=== PATIENT | male | born 1960 | race Caucasian/White ===

== ENCOUNTER 2021-06-24 21:42 | Emergency (ER) | payer OTHER ==
[~2021-06-24] VITALS: Ht 182.9 cm; Wt 95.5 kg
--- NOTE | 2021-06-24 23:00 | PHYS DOC ---
Past Medical History Past Surgical History: No Surgical History General Adult EDM: Chief Complaint: FOOT INJURY PAIN HPI: HPI: Patient is a 60 year old male presents with the chief complaint of left foot pain after an injury at work. Injury to right foot 2000hrs. 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 Patient states he heard some popping. Sudden onset of pain. Pain along metatarsal phalangeal joint of all toes. Toes are all neurovascularly intact no signs or symptoms of compartment syndrome Review of Systems: Review of Systems: Constitutional: Denies fever or chills. [] Eyes: Denies change in visual acuity. [] HENT: Denies nasal congestion or sore throat. [] Respiratory: Denies cough or shortness of breath. [] Cardiovascular: Denies chest pain or edema. [] GI: Denies abdominal pain, nausea, vomiting, bloody stools or diarrhea. [] : Denies dysuria. [] Musculoskeletal: Denies back pain or joint pain. [] Integument: Denies rash. [] Neurologic: Denies headache, focal weakness or sensory changes. [] Endocrine: Denies polyuria or polydipsia. [] Lymphatic: Denies swollen glands. [] Psychiatric: Denies depression or anxiety. [] Heart Score: C/O Chest Pain: N/A Risk Factors: Risk Factors: DM, Current or recent (<one month) smoker, HTN, HLP, family history of CAD, obesity. Risk Scores: Score 0 - 3: 2.5% MACE over next 6 weeks - Discharge Home Score 4 - 6: 20.3% MACE over next 6 weeks - Admit for Clinical Observation Score 7 - 10: 72.7% MACE over next 6 weeks - Early Invasive Strategies Allergies: Allergies: Allergies Coded Allergies Type Severity Reaction Last Updated Verified No Known Drug Allergies 06/24/21 No Physical Exam: PE: Constitutional: Well developed, well nourished, no acute distress, non-toxic appearance. [] HENT: Normocephalic, atraumatic, bilateral external ears normal, oropharynx moist, no oral exudates, nose normal. [] Eyes: PERRLA, EOMI, conjunctiva normal, no discharge. [] Neck: Normal range of motion, no tenderness, supple, no stridor. [] Cardiovascular:Heart rate regular rhythm, no murmur [] Lungs & Thorax: Bilateral breath sounds clear to auscultation [] Abdomen: Bowel sounds normal, soft, no tenderness, no masses, no pulsatile masses. [] Skin: Warm, dry, no erythema, no rash. [] Back: No tenderness, no CVA tenderness. [] Extremities: No tenderness, no cyanosis, no clubbing, ROM intact, no edema. [] Left foot left foot is neurovascularly intact there is some ecchymosis along the medial aspect soft tissue of the great toe there is soft tissue swelling along the distal metatarsals. There is pain to palpation. Patient has pain with range of motion flexion and extension of the toes Neurologic: Alert and oriented X 3, normal motor function, normal sensory function, no focal deficits noted. [] Psychologic: Affect normal, judgement normal, mood normal. [] Current Patient Data: Vital Signs: Vital Signs Date Time Temp Pulse Resp B/P (MAP) Pulse Ox O2 Delivery O2 Flow Rate FiO2 06/24/21 21:58 98.3 63 20 171/101 (124) 97 Room Air 98.3 EKG: EKG: [] Radiology/Procedures: Radiology/Procedures: [] Impression: wet read fracture distal metatarsal 5-4-3-2 IMPRESSION: 1. Acute traumatic fractures of the distal necks of the second through fifth metatarsals. 2. Acute traumatic fracture at the base of the great toe proximal phalanx. Course & Med Decision Making: Course & Med Decision Making Pertinent Labs and Imaging studies reviewed. (See chart for details) [] Treated with naproxen. Prescribed hydrocodone. Referred to Dr. Hebert. Lul patient with Dr. Frazier he request padding and a posterior splint. States his office will call the patient in the a.m. to schedule follow-up. I did provide patient with Dr. Hebert's contact information. Noemí Disclaimer: Noemí Disclaimer: This electronic medical record was generated, in whole or in part, using a voice recognition dictation system. Departure Departure Impression: Primary Impression: Metatarsal fracture Disposition: HOME / SELF CARE / HOMELESS Condition: STABLE Referrals: CLAIRE HEBERT DPM Patient Instructions: Metatarsal Stress Fracture-[employer] Scripts Hydrocodone/Acetaminophen (Hydrocodone-Acetamin 5-325 mg) 1 Each Tablet 1 EACH PO Q4-6HRS, #20 TAB Prov: DIANE THOMAS DO 06/24/21 DIANE THOMAS DO Jun 24, 2021 23:00
[2021-06-24] MEDS ORDERED: HYDR-2759 PO (23:09)
--- NOTE | 2021-06-24 23:13 | RAD ---
XR FOOT_LEFT 3 VIEWS Clinical Indication: Reason: pain metatarsals hyperflexed / Spl. Instructions: / History: Comparison: None. Findings: There are acute traumatic minimally displaced fractures of the distal necks of the second through fif th metatarsals. There is acute traumatic nondisplaced fracture of the base of the great toe proximal phalanx. There is probably intra-articular extension of the fracture to the first MTP joint. There is no dorsal soft tissue swelling of the foot. There is pes planus. Joint spaces are maintained. IMPRESSION: 1. Acute traumatic fractures of the distal necks of the second through fifth metatarsals. 2. Acute traumatic fracture at the base of the great toe proximal phalanx. Electronically signed by: Theo Pacheco MD (06/24/2021 11:11 PM) [facility]
[2021-06-24] MEDS ORDERED: NAPROXEN 500 MG TABLET PO ONE (23:30)
[2021-06-24 23:40] VITALS: BP 190/99
== END 2021-06-25 00:15 | disposition home or self-care (01) ==
LOC: ER 21:42
DX: S92.412A Displaced fracture of proximal phalanx of left great toe, initial encounter for closed fracture (principal); X50.9XXA Other and unspecified overexertion or strenuous movements or postures, initial encounter; Y93.89 Activity, other specified; Y92.69 Other specified industrial and construction area as the place of occurrence of the external cause; Y99.0 Civilian activity done for income or pay
CPT/HCPCS: 29515; 73630; 99283